=== PATIENT | female | born 1990 | race Two or more races ===

== ENCOUNTER 2017-08-03 23:48 | Emergency (ER) | payer SELFPAY ==
[~2017-08-03] VITALS: Ht 152.4 cm; Wt 59.0 kg
[2017-08-04 00:50] VITALS: BP 118/78
== END 2017-08-04 07:15 | disposition home or self-care (01) ==
LOC: ER 23:48
DX: M54.5 Low back pain (principal); V49.9XXA Car occupant (driver) (passenger) injured in unspecified traffic accident, initial encounter; Y93.89 Activity, other specified; Y92.89 Other specified places as the place of occurrence of the external cause; Y99.8 Other external cause status
CPT/HCPCS: 99283